=== PATIENT | female | born 1990 | race Caucasian/White ===

== ENCOUNTER 2017-03-05 12:41 | Emergency (ER) | payer MEDICAID ==
[~2017-03-05] VITALS: Ht 160 cm; Wt 77.0 kg
[2017-03-05 12:46] VITALS: BP 117/64
== END 2017-03-05 19:22 | disposition left against medical advice (07) ==
LOC: ER 16:23
DX: R07.9 Chest pain, unspecified (principal); R06.02 Shortness of breath; Z53.21 Procedure and treatment not carried out due to patient leaving prior to being seen by health care provider